=== PATIENT | female | born 1960 | race Two or more races ===

== ENCOUNTER 2019-04-12 17:16 | Emergency (ER) | payer OTHER ==
[~2019-04-12] VITALS: Ht 160 cm; Wt 72.6 kg
== END 2019-04-12 18:30 | disposition home or self-care (01) ==
LOC: ER 17:16
DX: R42 Dizziness and giddiness (principal)

== ENCOUNTER 2023-10-31 18:01 | Emergency (ER) | payer OTHER ==
[~2023-10-31] VITALS: Ht 160 cm; Wt 60.3 kg
== END 2023-10-31 21:45 | disposition home or self-care (01) ==
LOC: ER 18:01
DX: R07.0 Pain in throat (principal); Z91.013 Allergy to seafood